=== PATIENT | male | born 1945 | race Caucasian/White ===

== ENCOUNTER 2018-03-05 08:33 | Observation (INO) ==
--- NOTE | 2018-03-05 08:58 | ED ---
HPI General Chief complaint: Fall Stated complaint: Fall Time Seen by Provider: 03/05/18 08:46 Source: patient Mode of arrival: EMS Limitations: no limitations History of Present Illness HPI narrative: 72-year-old male here for evaluation after a fall. The patient reports that he was walking into the [place] [facility] when he tripped and fell onto her right outstretched hand. He struck his head but denies loss of consciousness. States that there is an obvious deformity to his right hand with a large laceration over the palmar aspect. Pain is 2 out of 10, throbbing , constant, worse with movements. He denies paresthesias. Head pain is minimal. He is on 81 mg of aspirin daily. No other antiplatelets or anticoagulants. Denies neck or back pain. He does have some mild pain in his right knee, however he reports that he was able to ambulate after the fall. Last tetanus was 3 days ago. He is right-hand dominant. Related Data Home Medications Medication Instructions Recorded Confirmed Lactobac 41-B.bifid,lactis-FOS 1 tab PO DAILY 03/05/18 03/05/18 [Ultimate Probiotic-10] aspirin [Aspirin Childrens] 81 mg PO DAILY 03/05/18 03/05/18 atorvastatin [Lipitor] 80 mg PO DAILY 03/05/18 03/05/18 glimepiride 4 mg PO QAM 03/05/18 03/05/18 lisinopril-hydrochlorothiazide 1 tab PO DAILY 03/05/18 03/05/18 metformin 1,000 mg PO BID 03/05/18 03/05/18 metoprolol tartrate 25 mg PO BID 03/05/18 03/05/18 multivitamin [Multiple Vitamins] 1 tab PO DAILY 03/05/18 03/05/18 tamsulosin [Flomax] 0.8 mg PO DAILY 03/05/18 03/05/18 Allergies Allergy/AdvReac Type Severity Reaction Status Date / Time No Known Allergies Unknown Uncoded 02/27/17 13:42 Review of Systems ROS: all other systems reviewed are negative [facility] Family History Family History Other Family history of cancer Social History Social History Substance History: No History of Abuse Second Hand Smoke Exposure: No Smoking Status: Former smoker How Often Do You Have a Drink Containing Alcohol: 2 to 3 times a week Recent Travel in [facility] within the Last 8 Weeks: No Recent Out of Country Travel within the Last 8 Weeks: No Immunization History Tetanus Immunization: <5 Years Tetanus Immunization Year if Known: 2018 Exam Narrative Exam Narrative: GENERAL: Well-developed, well-nourished, pleasant, comfortable, no apparent distress. SKIN: Focused skin assessment warm/dry. Large linear/horizontal laceration over the palmar aspect of the patient's right hand just proximal to the MCP joint with obvious deformity to the second and third MCP joints. There is also a laceration in the webspace between the first and second fingers of moderate depth, mild venous oozing, no visible contaminants. Superficial abrasion to right forehead as well as right anterior knee. HEAD: Superficial abrasion to right forehead as well as right anterior knee. Normocephalic. EYES: Pupils equal, round, 3 mm, reactive to light. No scleral icterus. No injection or drainage. ENT: Mucous membranes pink and moist. NECK: Trachea midline. No JVD. No midline cervical spine step-off or tenderness. CARDIOVASCULAR: Regular rate and rhythm. RESPIRATORY: No accessory muscle use. Clear to auscultation. Breath sounds equal bilaterally. GASTROINTESTINAL: Abdomen soft, non-tender, nondistended. MUSCULOSKELETAL: Skin exam as above with obvious deformity to the right hand at the second and third MCP joints with tenderness to this area. Normal sensation and capillary refill in all fingers in the right hand. No tenderness or deformity at the right wrist, elbow, or shoulder joints there is a small/ superficial abrasion to the right anterior knee with mild tenderness, no obvious bony deformity, normal range of motion. NEUROLOGICAL: Awake and alert. No obvious cranial nerve deficits. Motor grossly within normal limits. Normal speech. PSYCHIATRIC: Appropriate mood and affect; insight and judgment normal. Course Initial Documented Vital Signs Temperature 98.1 F 03/05/18 08:42 Pulse Rate 64 03/05/18 08:42 Respiratory Rate 20 03/05/18 08:42 Blood Pressure 182/81 H 03/05/18 08:42 Pulse Oximetry 97 03/05/18 08:42 Last Documented Vital Signs Temperature 98.1 F 03/05/18 08:42 Pulse Rate 64 03/05/18 08:42 Respiratory Rate 20 03/05/18 08:42 Blood Pressure 182/81 H 03/05/18 08:42 Pulse Oximetry 97 03/05/18 08:42 Medical Decision Making MDM Narrative Medical decision making narrative: Right hand x-ray: CONCLUSION: Dislocated second metacarpal phalangeal joint. Case discussed with on-call hand surgeon Dr. Carrizales through the circulating nurse as he is currently in surgery. He would like me to relocate the joint in the emergency department, wash the lacerations out thoroughly, and discharge patient home on oral antibiotics. Procedure note: Reduction of joint dislocation: Right second MCP joint dislocation was reduced by me using gentle traction. Tolerated well. No complications. Postreduction exam shows that the entire right hand is neurovascularly intact, and the patient has full range of flexion and extension in the right hand and index finger. FDS and FDP appear intact. The patient was provided 2 g of IV Ancef. He received a tetanus vaccine 3 days ago. Laceration repairs will be performed my TEE. Post reduction right hand xray: CONCLUSION: Persistent mild [id number]-qp-[id number] subluxation of the second metacarpal phalangeal joint following reduction. The patient's hand lacerations were thoroughly irrigated by my PA Chaparro Zimmerman who noticed a partial flexor tendon injury to the third finger. This information was relayed to Dr. Carrizales or the hand surgeon on-call through the circulating nurse in the OR. The patient will be admitted for observation to the medical service and he will evaluate the patient and likely take him to the OR later today. The patient and the patient's were made aware of these findings and plan. Case discussed with hospitalist Dr. Madsen who will admit the patient to the hospitalist service. Medical Screen Exam Complete: Yes Emergency Medical Condition: Yes Differential Diagnosis Differential Diagnosis: Open right hand fracture/dislocation, intracranial trauma, mechanical trip and fall Lab Data Result diagrams: 03/05/18 09:00 03/05/18 09:00 Lab Results 03/05/18 03/05/18 03/05/18 Range/Units 09:00 09:00 09:00 WBC 6.8 (4.0-11.0) th/mm3 RBC 4.87 (4.50-5.90) mil/mm3 Hgb 13.7 (13.0-17.0) gm/dL Hct 41.4 (39.0-51.0) % MCV 85.0 (80.0-100.0) fL MCH 28.2 (27.0-34.0) pg MCHC 33.1 (32.0-36.0) % RDW 15.5 (11.6-17.2) % Plt Count 176 (150-450) th/mm3 MPV 8.7 (7.0-11.0) fL PT 11.4 (9.8-11.6) sec INR 1.1 Ratio APTT 27.1 (23.4-31.7) sec Sodium 139 (136-145) meq/L Potassium 4.2 (3.5-5.1) meq/L Chloride 104 (98-107) meq/L Carbon Dioxide 27.0 (21.0-32.0) meq/L Anion Gap 8 (5-15) meq/L BUN 24 H (7-18) mg/dL Creatinine 1.06 (0.60-1.30) mg/dL Estimated GFR 68 L (>89) mL/min POC Glucose (68-110) mg/dl Random Glucose 164 H (74-106) mg/dL Calcium 9.1 (8.5-10.1) mg/dL 03/05/18 Range/Units 15:21 WBC (4.0-11.0) th/mm3 RBC (4.50-5.90) mil/mm3 Hgb (13.0-17.0) gm/dL Hct (39.0-51.0) % MCV (80.0-100.0) fL MCH (27.0-34.0) pg MCHC (32.0-36.0) % RDW (11.6-17.2) % Plt Count (150-450) th/mm3 MPV (7.0-11.0) fL PT (9.8-11.6) sec INR Ratio APTT (23.4-31.7) sec Sodium (136-145) meq/L Potassium (3.5-5.1) meq/L Chloride (98-107) meq/L Carbon Dioxide (21.0-32.0) meq/L Anion Gap (5-15) meq/L BUN (7-18) mg/dL Creatinine (0.60-1.30) mg/dL Estimated GFR (>89) mL/min POC Glucose 70 (68-110) mg/dl Random Glucose (74-106) mg/dL Calcium (8.5-10.1) mg/dL Imaging Data Radiologist's impression: Hand X-Ray 03/05/18 00:00 CONCLUSION: Persistent mild fyck-rs-xitf subluxation of the second metacarpal phalangeal joint following reduction. Cervical Spine CT 03/05/18 08:52 CONCLUSION: 1. No fracture or dislocation. 2. Degenerative changes as detailed above. Hand X-Ray 03/05/18 08:52 CONCLUSION: Dislocated second metacarpal phalangeal joint. Head CT 03/05/18 08:52 CONCLUSION: 1. No acute intracranial abnormality. . Knee X-Ray 03/05/18 08:52 CONCLUSION: No evidence of recent bony injury. Wrist X-Ray 03/05/18 10:12 CONCLUSION: Mild residual subluxation remains evident of the second metacarpal phalangeal joint following reduction. Wrist is intact without evidence of fracture or dislocation. Discharge Plan Discharge Disposition Patient Disposition: 30 Still Patient Discharge Condition Condition: Stable Discharge Details Diagnosis: Dislocation of finger, right, open Physicians Team ED Provider: Gonsalo Duran ED Midlevel Provider: Chaparro Zimmerman Primary Care Provider: Nena Thomas Attending Provider: Vivek Madsen Other Providers: Jeff Carrizales Status ED Status: Left Department Discharge Information Discharge Date/Time: 03/05/18 13:24
[2018-03-05 09:11] LABS: Hematocrit 41.4 % (39.0-51.0); Hemoglobin 13.7 gm/dL (13.0-17.0); Mean Corpuscular HGB Conc 33.1 % (32.0-36.0); Mean Corpuscular Hemoglobin 28.2 pg (27.0-34.0); Mean Platelet Volume 8.7 fL (7.0-11.0); Platelet Count 176 th/mm3 (150-450); Red Blood Count 4.87 mil/mm3 (4.50-5.90); Red Cell Distribution Width 15.5 % (11.6-17.2); White Blood Count 6.8 th/mm3 (4.0-11.0)
[2018-03-05 09:19] LABS: Activated Partial Thrombo Time 27.1 sec (23.4-31.7); INR 1.1 Ratio; Prothrombin Time 11.4 sec (9.8-11.6)
[2018-03-05 09:29] LABS: Calcium 9.1 mg/dL (8.5-10.1); Potassium 4.2 meq/L (3.5-5.1)
[2018-03-05] MEDS ORDERED: ceFAZolin 1 GM Premix Inj 1 GM/50 ML FROZ.PIGGY IV.SIG ONE (09:45)
--- NOTE | 2018-03-05 09:48 | XR ---
EXAM DATE: 03/05/2018 9:43 AM EST AGE/SEX: 72 years / Male INDICATIONS: Fell today, pain right hand, second metacarpal and digit CLINICAL DATA: This is the patient's initial encounter. Patient reports that signs and symptoms have been present for 1 day and indicates a pain score of 10/10. MEDICAL/SURGICAL HISTORY: None. None. COMPARISON: No prior exams available for comparison. FINDINGS: The second metacarpophalangeal joint is dislocated. There is ulnar displacement of the proximal phala nx. No significant fractures seen. Overlying soft tissue injury is noted. CONCLUSION: Dislocated second metacarpal phalangeal joint. Electronically signed by: Valentin Ruby MD 03/05/2018 9:47 AM EST
--- NOTE | 2018-03-05 09:50 | XR ---
EXAM DATE: 03/05/2018 9:46 AM EST AGE/SEX: 72 years / Male INDICATIONS: Fell today, right anterior knee pain, small abrasion right anterior knee CLINICAL DATA: This is the patient's initial encounter. Patient reports that signs and symptoms have been present for 1 day and indicates a pain score of 10/10. MEDICAL/SURGICAL HISTORY: None. None. COMPARISON: No prior exams available for comparison. FINDINGS: Bony structures are intact and in normal alignment. Joints are intact without dislocation or signifi cant arthropathy. Osseous density is normal. Soft tissues are unremarkable. No radiopaque foreign bodies seen. CONCLUSION: No evidence of recent bony injury. Electronically signed by: Valentin Ruby MD 03/05/2018 9:48 AM EST
[2018-03-05] MEDS ORDERED: Morphine Inj 4 MG/ML Vial IV.PUSH ONE ×2 (09:53→12:18)
[2018-03-05] MEDS ORDERED: ceFAZolin 2 GM IV; once IV.SIG ONE (10:00)
[2018-03-05] MEDS ORDERED: Lidocaine 1% Inj 50 ML Vial INFILTRATN ONE (10:14)
--- NOTE | 2018-03-05 10:44 | CT ---
EXAM DATE: 03/05/2018 10:35 AM EST AGE/SEX: 72 years / Male INDICATIONS: Trip and fall. Bump on right forehead. CLINICAL DATA: This is the patient's initial encounter. Patient reports that signs and symptoms have been present for 1 day and indicates a pain score of 3/10. MEDICAL/SURGICAL HISTORY: None. None. RADIATION DOSE: 41.24 CTDI (mGy) COMPARISON: No prior exams available for comparison. TECHNIQUE: CT of the head without contrast. Using automated exposure control and adjustment of the mA and/or kV according to patient size, radiation dose was kept as low as reasonably achievable to ob tain optimal diagnostic quality images. DICOM format image data is available electronically for revi ew and comparison. FINDINGS: Cerebrum: The ventricles are normal for age. No evidence of midline shift, mass lesion, hemorrhage or acute infarction. No extraaxial fluid collections are seen. A 1 cm homogeneously calcified area i s seen involving the right parietal lobe near the vertex. Likely dystrophic in nature. Posterior Fossa: The cerebellum and brainstem are intact. The 4th ventricle is midline. The cerebe llopontine angle is unremarkable. Extracranial: The visualized portion of the orbits is intact. Skull: The calvaria is intact. No evidence of skull fracture. CONCLUSION: 1. No acute intracranial abnormality. . Electronically signed by: Celso Olmos MD 03/05/2018 10:42 AM EST
--- NOTE | 2018-03-05 10:50 | CT ---
EXAM DATE: 03/05/2018 10:39 AM EST AGE/SEX: 72 years / Male INDICATIONS: Trip and fall, neck pain. CLINICAL DATA: This is the patient's initial encounter. Patient reports that signs and symptoms have been present for 1 day and indicates a pain score of 4/10. MEDICAL/SURGICAL HISTORY: None. None. RADIATION DOSE: 23.80 CTDI (mGy) COMPARISON: No prior exams available for comparison. TECHNIQUE: Contiguous axial images were obtained using helical multirow detector technique. The vol umetric data was post-processed with multiplanar reconstruction in oblique axial, sagittal, and coron al planes. Using automated exposure control and adjustment of the mA and/or kV according to patient s ize, radiation dose was kept as low as reasonably achievable to obtain optimal diagnostic quality hari ges. DICOM format image data is available electronically for review and comparison. FINDINGS: Vertebrae: Normal vertebral body height. Alignment: Normal. No subluxation. Significant calcified atheromatous plaque throughout the carotid arteries. C2-3: The bony spinal canal is normal in size. No evidence of disc bulge or herniation. The neural foramina are bilaterally patent. C3-4: A mild broad-based disc bulge. No central canal stenosis or abutment of the cord. Bony uncover tebral hypertrophy generates mild encroachment upon the neural foramina bilaterally.. C4-5: The bony spinal canal is normal in size. No evidence of disc bulge or herniation. The neural foramina are bilaterally patent. C5-6: There is disc space narrowing with anterior osteophyte production. A left paracentral disc pro trusion narrows the left lateral recess and central canal. Prominent bony uncovertebral hypertrophy g enerates bilateral neural foraminal narrowing. C6-7: Disc space narrowing with broad-based disc osteophyte complex which causes narrowing of the ce ntral canal and lateral recesses bilaterally. Bony uncovertebral hypertrophy generates bilateral neur al foraminal narrowing.. C7-T1: The bony spinal canal is normal in size. No evidence of disc bulge or herniation. The neura l foramina are bilaterally patent. CONCLUSION: 1. No fracture or dislocation. 2. Degenerative changes as detailed above. Electronically signed by: Celso Olmos MD 03/05/2018 10:49 AM EST
--- NOTE | 2018-03-05 10:54 | XR ---
EXAM DATE: 03/05/2018 10:49 AM EST AGE/SEX: 72 years / Male INDICATIONS: Right extremity pain post fall. CLINICAL DATA: This is the patient's initial encounter. Patient reports that signs and symptoms have been present for 1 day and indicates a pain score of 6/10. MEDICAL/SURGICAL HISTORY: None. None. COMPARISON: C, HAND COMPLETE RIGHT MIN 3V, 03/05/2018. . FINDINGS: The dislocated second metacarpal phalangeal joint has been reduced. Some mild persistent subluxation is noted. The wrist joint is intact without evidence of fracture, dislocation or significant soft tissue swelli ng. CONCLUSION: Mild residual subluxation remains evident of the second metacarpal phalangeal joint following reducti on. Wrist is intact without evidence of fracture or dislocation. Electronically signed by: Valentin Ruby MD 03/05/2018 10:53 AM EST
--- NOTE | 2018-03-05 11:22 | XR ---
EXAM DATE: 03/05/2018 11:18 AM EST AGE/SEX: 72 years / Male INDICATIONS: Post reduction right 2nd digit. CLINICAL DATA: This is the patient's subsequent encounter. Patient reports that signs and symptoms h ave been present for 1 day and indicates a pain score of 5/10. MEDICAL/SURGICAL HISTORY: None. None. COMPARISON: C, WRIST COMPLETE RIGHT MIN 3V, 03/05/2018. . FINDINGS: The dislocated second metacarpal phalangeal joint has almost been reduced. There is continued mild ul chio displacement of the proximal phalanx in relation to the distal metacarpal. There is no evidence of fracture. CONCLUSION: Persistent mild cddm-kc-emmd subluxation of the second metacarpal phalangeal joint following reductio n. Electronically signed by: Valentin Ruby MD 03/05/2018 11:20 AM EST
[2018-03-05] MEDS ORDERED: Dextrose 50% in Water 50 ML Vial IV.PUSH PRN (12:10)
[2018-03-05] MEDS ORDERED: Morphine Sulfate Inj 2 MG/ML Vial IV.PUSH PRN ×2 (12:10→19:13)
--- NOTE | 2018-03-05 12:21 | P.HPIM ---
History of Present Illness Primary Care Physician: Nena Thomas MD, R2 Chief Complaint: pain to the right wrist History of Present Illness: patient is a 72 y/o male with history of hypertension, diabetes mellitus, dyslipidemia and CAD, who presented to ER with pain to the right wrist. he says that this morning while he was trying to get out of the car he tripped and fell on his hands after which he started to have pain to the right wrist.he denies any syncope and other than superficial lacerations on the right knee he denies any other injuries.he doesn't report any chest pain, abdominal pain, sob or dizziness. Review of Systems All other systems reviewed negative except as stated in HPI [facility] - History History Provided By: Patient - Medical History Medical History: Medical History (Last Reviewed 03/05/18 @ 12:16 by Vivek Madsen MD) Diabetes Enlarged prostate Heart disease High cholesterol Hypertension - Surgical History Surgical History: Surgical History (Last Reviewed 03/05/18 @ 12:16 by Vivek Madsen MD) H/O heart bypass surgery H/O shoulder surgery - Family History Family History: Family History (Last Updated 03/05/18 @ 12:16 by Vivek Madsen MD) Other Family history of cancer - Tobacco History Second Hand Smoke Exposure: No Tobacco Use In Past 30 Days: No Smoking Status: Former smoker - Alcohol History How Often Do You Have a Drink Containing Alcohol: Monthly or less - Substance Use History Substance History: No History of Abuse - Travel History Recent Travel in the [place] Within the Last 8 Weeks: No Recent Travel Out of the Country Within the Last 8 Weeks: No - Immunization History Tetanus Immunization: <5 Years Tetanus Immunization Year if Known: 2018 Medications and Allergies Allergies Allergy/AdvReac Type Severity Reaction Status Date / Time No Known Allergies Unknown Uncoded 02/27/17 13:42 Home Medications Medication Instructions Recorded Confirmed Type Lactobac 41-B.bifid,lactis-FOS 1 tab PO DAILY 03/05/18 03/05/18 History [Ultimate Probiotic-10] aspirin [Aspirin Childrens] 81 mg PO DAILY 03/05/18 03/05/18 History atorvastatin [Lipitor] 80 mg PO DAILY 03/05/18 03/05/18 History glimepiride 4 mg PO QAM 03/05/18 03/05/18 History lisinopril-hydrochlorothiazide 1 tab PO DAILY 03/05/18 03/05/18 History metformin 1,000 mg PO BID 03/05/18 03/05/18 History metoprolol tartrate 25 mg PO BID 03/05/18 03/05/18 History multivitamin [Multiple Vitamins] 1 tab PO DAILY 03/05/18 03/05/18 History tamsulosin [Flomax] 0.8 mg PO DAILY 03/05/18 03/05/18 History Exam Vital signs: Vital Signs 03/05/18 08:42 Temperature 98.1 F Pulse Rate 64 Respiratory Rate 20 Blood Pressure 182/81 H Pulse Oximetry 97 Intake & Output 03/04/18 03/05/18 03/05/18 18:59 06:59 18:59 Intake Total 50 / 50 Balance 50 / 50 Weight 128.367 kg Intake: IV 50 / 50 Ancef 2 GM Premix Inj 2 gm In 50 / 50 50 ml @ 100 mls/hr IV.SIG ONCE ONE Rx#:[id number] - Constitutional no acute distress - Routine HEENT Exam Eye: Present: PERRL - Routine Neck Exam Present: supple - Routine Respiratory Exam Present: CTA bilaterally - Routine Cardiovascular Exam Present: RRR - Routine Abdominal Exam Present: soft - Routine Extremities Exam Comments: right wrist/ hand covered with clean dressing/ superficial laceration noted on the right knee. - Routine Neurological Exam Present: alert, oriented X3 Results - Labs CBC & Chem 7: 03/05/18 09:00 03/05/18 09:00 Labs: Short CBC 03/05/18 Range/Units 09:00 WBC 6.8 (4.0-11.0) th/mm3 Hgb 13.7 (13.0-17.0) gm/dL Hct 41.4 (39.0-51.0) % Plt Count 176 (150-450) th/mm3 BMP 03/05/18 09:00 Sodium 139 Potassium 4.2 Chloride 104 Carbon Dioxide 27.0 BUN 24 H Creatinine 1.06 Calcium 9.1 - Imaging Impressions Hand X-Ray 03/05/18 00:00 CONCLUSION: Persistent mild udwq-yn-kpbq subluxation of the second metacarpal phalangeal joint following reduction. Cervical Spine CT 03/05/18 08:52 CONCLUSION: 1. No fracture or dislocation. 2. Degenerative changes as detailed above. Hand X-Ray 03/05/18 08:52 CONCLUSION: Dislocated second metacarpal phalangeal joint. Head CT 03/05/18 08:52 CONCLUSION: 1. No acute intracranial abnormality. . Knee X-Ray 03/05/18 08:52 CONCLUSION: No evidence of recent bony injury. Wrist X-Ray 03/05/18 10:12 CONCLUSION: Mild residual subluxation remains evident of the second metacarpal phalangeal joint following reduction. Wrist is intact without evidence of fracture or dislocation. Caprini VTE Risk Assessment Caprini VTE Risk Assessment: Moderate/High Risk (score >= 2) Caprini Risk Assessment Model: Point Value = 1 Point Value = 2 Point Value = 3 Point Value = 5 Age 41-60 Minor surgery BMI > 25 kg/m2 Swollen legs Varicose veins or History of unexplained or recurrent spontaneous Oral contraceptives or hormone replacement Sepsis (< 1 month) Serious lung disease, including pneumonia (< 1 month) Abnormal pulmonary function Acute myocardial infarction Congestive heart failure (< 1 month) History of inflammatory bowel disease Medical patient at bed rest Age 61-74 Arthroscopic surgery Major open surgery (> 45 min) Laparoscopic surgery (> 45 min) Malignancy Confined to bed (> 72 hours) Immobilizing plaster cast Central venous access Age >= 75 History of VTE Family history of VTE Factor V Leiden Prothrombin [id number] Lupus anticoagulant Anticardiolipin antibodies Elevated serum homocysteine Heparin-induced thrombocytopenia Other congenital or acquired thrombophilia Stroke (< 1 month) Elective arthroplasty Hip, pelvis, or leg fracture Acute spinal cord injury (< 1 month) Prophylaxis Regimen: Total Risk Factor Score Risk Level Prophylaxis Regimen 0-1 Low Early ambulation 2 Moderate Order ONE of the following: *Sequential Compression Device (SCD) *Heparin 5000 units SQ BID 3-4 Higher Order ONE of the following medications: *Heparin 5000 units SQ TID *Enoxaparin/Lovenox 40 mg SQ daily (WT < 150 kg, CrCl > 30 mL/min) *Enoxaparin/Lovenox 30 mg SQ daily (WT < 150 kg, CrCl > 10-29 mL/min) *Enoxaparin/Lovenox 30 mg SQ BID (WT < 150 kg, CrCl > 30 mL/min) AND/OR *Sequential Compression Device (SCD) 5 or more Highest Order ONE of the following medications: *Heparin 5000 units SQ TID (Preferred with Epidurals) *Enoxaparin/Lovenox 40 mg SQ daily (WT < 150 kg, CrCl > 30 mL/min) *Enoxaparin/Lovenox 30 mg SQ daily (WT < 150 kg, CrCl > 10-29 mL/min) *Enoxaparin/Lovenox 30 mg SQ BID (WT < 150 kg, CrCl > 30 mL/min) AND *Sequential Compression Device (SCD) Assessment and Plan - Plan A/P - fall with right 2nd MCP joint dislocation; s/p closed reduction in ER XR of the wrist with residual subluxation keep NPO and consult hand surgery- continue with pain control. -CAD- s/p CABG will resume aspirin after hand surgery evaluation- resume statin -hypertension; resume home meds- Vasotec prn. -diabetes mellitus; start on accu-check with SSI -DVT prophylaxis; pending hand surgery consult. Discussed Condition With: ER physician and the patient. Discharge Planning: home when cleared by hand surgery.
[2018-03-05] MEDS: Sod Chloride 0.9% Inj 1,000 ML IV.CONT SCH (12:49)
[2018-03-05] MEDS ORDERED: Lidocaine 2% Inj 50 ML Vial ONE (14:52)
[2018-03-05] MEDS ORDERED: Bupivacaine/Epinephrine PF Inj 0.5% 30 ML Vial ONE (14:52)
[2018-03-05] MEDS ORDERED: Bupivacaine PF 0.5% Inj 30 ML Vial ONE (14:55)
[2018-03-05] MEDS ORDERED: Chlorhexidine Gluconate 2% 1 Pack (2 Cloths) TOPICAL ONE (16:07)
[2018-03-05] MEDS ORDERED: Phenylephrine/NS 1000 MCG/10ML Syringe IV.PUSH ONE (16:08)
[2018-03-05] MEDS ORDERED: Lidocaine PF 1% Inj 5 ML Syringe OTHER ONE (16:08)
[2018-03-05] MEDS ORDERED: Sodium Chloride 0.9% 2 ML Flush PRN IV.FLUSH (16:12)
[2018-03-05] MEDS ORDERED: Sodium Chlor 0.9% Inj 500 ML IV.SIG SCH (16:15)
[2018-03-05] MEDS ORDERED: Metoprolol Tartrate 25 MG Tablet PO SCH (16:15)
[2018-03-05] MEDS ORDERED: Bupivacaine 0.25% Inj 50 ML MDV Vial ONE (16:18)
--- NOTE | 2018-03-05 16:54 | ECG ---
Date Performed: 03/05/2018 Time Performed: 11:59:16 PTAGE: 72 years EKG: SINUS BRADYCARDIA WITH FIRST DEGREE AV BLOCK OLD INFERIOR MYOCARDIAL INFARCTION ABNORMAL EC G NO PREVIOUS TRACING DOCTOR: Mian Guido Interpretating Date/Time 03/05/2018 16:52:57
[2018-03-05] MEDS ORDERED: ceFAZolin 2 GM Premix Inj 2 GM/50 ML PIGGYBACK IV.SIG ONE (17:58)
[2018-03-05] MEDS ORDERED: fentaNYL Citrate Inj 100 MCG/2 ML Ampul ONE (18:32)
[2018-03-05] MEDS ORDERED: Dextrose 50% in Water Syringe 50 ML ONE (18:33)
--- NOTE | 2018-03-05 19:27 | XR ---
EXAM DATE: 03/05/2018 7:13 PM EST AGE/SEX: 72 years / Male INDICATIONS: Post op right hand CLINICAL DATA: This is the patient's subsequent encounter. Patient reports that signs and symptoms h ave been present for 1 day and indicates a pain score of 5/10. MEDICAL/SURGICAL HISTORY: None. None. COMPARISON: [facility] [place], WRIST COMPLETE RIGHT MIN 3V, 03/05/2018. [facility] [place], HAND LIMITED RIGHT 2V, 018. . FINDINGS: Bandage artifact obscures osseous detail. The bone density is normal. No fractures are seen. CONCLUSION: No obvious fractures. Electronically signed by: Luther Clement MD 03/05/2018 7:25 PM EST
[2018-03-05] MEDS: Metoprolol Tartrate 25 MG Tablet PO SCH (22:38)
[2018-03-05] MEDS: Sodium Chloride 0.9% 2 ML Flush BID IV.FLUSH SCH (22:38)
[2018-03-05] MEDS: Insulin NovoLOG Aspart Correctional Sugar Inj SQ SCH (22:48)
[2018-03-06] MEDS: Sod Chloride 0.9% Inj 1,000 ML IV.CONT SCH ×2 (05:00→12:05)
[2018-03-06] MEDS ORDERED: hydroCHLOROthiazide 25 MG Tablet PO SCH (09:00)
[2018-03-06] MEDS ORDERED: Lisinopril 10 MG Tablet PO SCH (09:00)
[2018-03-06 09:38] VITALS: O2SAT 98
[2018-03-06] MEDS: Insulin NovoLOG Aspart Correctional Sugar Inj SQ SCH ×2 (09:39→12:59)
[2018-03-06] MEDS: Sodium Chloride 0.9% 2 ML Flush BID IV.FLUSH SCH (09:40)
[2018-03-06] MEDS: Metoprolol Tartrate 25 MG Tablet PO SCH (09:40)
--- NOTE | 2018-03-06 09:57 | P.PN ---
Subjective Interval history: Follow-up on patient who underwent right open reduction second metacarpal phalangeal joint dislocation. Patient seen and examined. Patient is has already been cleared for discharge by hand surgery pending post reduction films. Patient states he feels well. He reports that his pain is controlled. He denies any fever or chills. He denies any chest pain or shortness of breath. He denies any nausea, vomiting or abdominal pain. Discussed with nursing staff, no acute issues noted overnight. Physical Exam Vital signs: Vital Signs 03/05/18 18:22 03/05/18 18:30 03/05/18 18:45 Temperature 98.2 F Pulse Rate 73 67 63 Respiratory Rate 16 16 18 Blood Pressure 170/75 H 167/72 H 155/70 H Pulse Oximetry 100 100 100 03/05/18 19:00 03/05/18 19:25 03/05/18 20:00 Temperature 98.2 F 97.8 F Pulse Rate 67 61 69 Respiratory Rate 18 18 Blood Pressure 161/65 H 160/71 H 154/69 H Pulse Oximetry 96 96 94 L 03/06/18 00:00 03/06/18 04:00 03/06/18 09:37 Temperature 97.7 F 98.1 F Pulse Rate 70 60 68 Respiratory Rate 18 18 Blood Pressure 158/69 H 165/70 H 159/68 H Pulse Oximetry 95 95 98 Intake & Output 03/05/18 03/06/18 03/06/18 18:59 06:59 18:59 Intake Total 2112.5 / 2112.5 350 / 350 Output Total 5 / 5 Balance 2107.5 / 2107.5 350 / 350 Weight 128 kg 69.3 kg Intake: IV 112.5 / 112.5 D50W Syringe 50 ML @ 0 mls/hr . 12.5 / 12.5 ROUTE .STK-MED ONE Rx#:[id number] Ancef 2 GM Premix Inj 2 gm In 100 / 100 50 ml @ 100 mls/hr IV.SIG ONCE ONE Rx#:[id number] Oral 350 / 350 Anesthesia Amount 1999 Output: Estimated Blood Loss 5 / 5 Other: # Voids 4 Date of Last Bowel Movement 03/05/18 Weight On Admission 128 kg Narrative: GENERAL: WDWN male patient, INAD. Awake and alert. Appears comfortable. SKIN: Warm and dry. No rash. HEAD: Atraumatic. Normocephalic. EYES: Pupils equal and round. No scleral icterus. No injection or drainage. ENT: No nasal bleeding or discharge. Mucous membranes pink and moist. NECK: Trachea midline. CARDIOVASCULAR: Regular rate and rhythm. RESPIRATORY: No accessory muscle use. Clear to auscultation. Breath sounds equal bilaterally. GASTROINTESTINAL: Abdomen soft, non-tender, nondistended. +BS. MUSCULOSKELETAL: Extremities without clubbing, cyanosis, or edema. RUE in splint , elevated in sling on IV pole. All digits warm and well perfused. + good cap refill. Sensation intact to light touch. Able to wiggle the digits of the right hand. NEUROLOGICAL: Awake and alert. No obvious cranial nerve deficits. Motor grossly within normal limits. Able to move all extremities spontaneously. Normal speech. PSYCHIATRIC: Appropriate mood and affect; insight and judgment normal. R Results - Labs CBC & Chem 7: 03/05/18 09:00 03/05/18 09:00 Laboratory Results - last 24 hr 03/05/18 03/05/18 03/05/18 15:21 18:29 18:50 POC Glucose 70 69 97 03/05/18 03/06/18 22:42 07:54 POC Glucose 261 H 166 H - Imaging Impressions Hand X-Ray 03/05/18 00:00 CONCLUSION: Persistent mild [id number] subluxation of the second metacarpal phalangeal joint following reduction. Hand X-Ray 03/05/18 00:00 CONCLUSION: No obvious fractures. Cervical Spine CT 03/05/18 08:52 CONCLUSION: 1. No fracture or dislocation. 2. Degenerative changes as detailed above. Head CT 03/05/18 08:52 CONCLUSION: 1. No acute intracranial abnormality. . Wrist X-Ray 03/05/18 10:12 CONCLUSION: Mild residual subluxation remains evident of the second metacarpal phalangeal joint following reduction. Wrist is intact without evidence of fracture or dislocation. Assessment and Plan - Plan 72 y/o male with history of hypertension, diabetes mellitus, dyslipidemia and CAD, who presented to ER with pain to the right wrist s/p fall: fall with right 2nd MCP joint dislocation; s/p closed reduction in ER XR of the wrist with residual subluxation -Hand surgery following, appreciate assistance. s/p right open reduction of the second metacarpal phalangeal joint dislocation. Patient cleared for discharge pending postreduction films by hand surgeon. Recommends p.o. Keflex for 7 days. Imaging ordered. -Continue with pain management and bowel regimen -PT/OT eval/recs CAD- s/p CABG Patient has no cardiac complaints -Continue on Lopressor 25 mg twice daily -Resume aspirin and statin therapy daily Hypertension -Continue with Lopressor, hydrochlorothiazide, lisinopril -Vasotec prn -Continue to monitor B. Testicular cord Diabetes mellitus Blood sugars acceptable -Patient's home medications glimepiride and metformin held -Continue on accu-check with SSI BPH -Continue patient on home dose of DVT prophylaxis -bilateral SCD/TAMARA hose Discharge patient to home Condition on discharge: Improved Heart healthy, diabetic diet as tolerated Activity per PT/OT recommendations Rx written: Keflex Follow-up with primary care physician and Dr. Carrizales Discussed Condition With: patient, nursing staff
--- NOTE | 2018-03-06 11:07 | P.CON ---
History of Present Illness Service: Hand surgery Consult date: 03/05/18 Reason for Consult: Right second metacarpal phalangeal joint dislocation Primary Care Provider: Nena Thomas MD, R2 Chief Complaint: Right second metacarpal phalangeal joint dislocation History of Present Illness: 72M with history of hypertension, diabetes mellitus, dyslipidemia and CAD, who presented to ER status post ground-level fall where he injured his right hand and sustained multiple lacerations. He denied loss of consciousness and/or syncope. Patient was injected with local and reduced by the ED physician. He reported normal sensation to the digits before being injected with local for the reduction. Patient reports that the sensation has largely returned to normal following the reduction. Review of Systems All other systems reviewed negative except as stated in HPI Medical History: Medical History (Last Reviewed 03/05/18 @ 12:16 by Vivek Madsen MD) Diabetes Enlarged prostate Heart disease High cholesterol Hypertension Surgical History: Surgical History (Last Reviewed 03/05/18 @ 12:16 by Vivek Madsen MD) H/O heart bypass surgery H/O shoulder surgery Family History: Family History (Last Updated 03/05/18 @ 12:16 by Vivek Madsen MD) Family history of cancer Tobacco History former smoker Medication list reviewed PMFSH - History History Provided By: Patient - Medical History Medical History: Medical History (Last Reviewed 03/05/18 @ 12:16 by Vivek Madsen MD) Diabetes Enlarged prostate Heart disease High cholesterol Hypertension - Surgical History Surgical History: Surgical History (Last Reviewed 03/05/18 @ 12:16 by Vivek Madsen MD) H/O heart bypass surgery H/O shoulder surgery - Family History Family History: Family History (Last Updated 03/05/18 @ 12:16 by Vivek Madsen MD) Other Family history of cancer - Tobacco History Second Hand Smoke Exposure: No Tobacco Use In Past 30 Days: No Smoking Status: Former smoker - Alcohol History How Often Do You Have a Drink Containing Alcohol: 2 to 3 times a week - Substance Use History Substance History: No History of Abuse - Travel History Recent Travel in the [place] Within the Last 8 Weeks: No Recent Travel Out of the Country Within the Last 8 Weeks: No - Immunization History Tetanus Immunization: <5 Years Tetanus Immunization Year if Known: 2018 Medications and Allergies Active Medications: Active Medications Atorvastatin Calcium (Lipitor) 80 mg PO DAILY [facility] Last Admin: 03/06/18 09:39 Dose: 80 mg Dextrose (D50w Vial) 50 ml IV.PUSH UNSCH PRN PRN Reason: PER HYPOGLYCEMIA PROTOCOL Enalaprilat (Vasotec Inj) 1.25 mg IV.PUSH Q8H PRN PRN Reason: SBP > 180 or DBP > 100 Glucagon (Glucagon Inj) 1 mg OTHER PRN PRN PRN Reason: for Hypoglycemia Protocol Hydrochlorothiazide (Hydrodiuril) 12.5 mg PO DAILY [facility] Last Admin: 03/06/18 09:40 Dose: 12.5 mg Sodium Chloride (Ns Inj) 1,000 mls @ 84 mls/hr IV.CONT .[id number] [facility] Last Admin: 03/06/18 05:00 Dose: Not Given Lactated Ringer's (Lr 1000 Ml Inj) 1,000 mls @ 30 mls/hr IV.SIG .Q24H [facility] Stop: 03/06/18 16:14 Insulin Aspart (Novolog Insulin Correctional Sugar Inj) 0 unit SQ ACHS [facility]; Protocol Last Admin: 03/06/18 09:39 Dose: 1 unit Lisinopril (Prinivil) 10 mg PO DAILY [facility] Last Admin: 03/06/18 09:39 Dose: 10 mg Metoprolol Tartrate (Lopressor) 25 mg PO BID [facility] Last Admin: 03/06/18 09:40 Dose: 25 mg Metoprolol Tartrate (Lopressor) 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 PO SOCIAL MEDIA STRATEGIST [facility] Stop: 03/06/18 16:14 Miscellaneous (Pill Splitter) 1 each OTHER UNSCH PRN PRN Reason: SEE LABEL COMMENTS Miscellaneous Information ([facility] Nursing Information) 0 each OTHER UNSCH PRN PRN Reason: SEE LABEL COMMENTS Stop: 03/06/18 18:25 Morphine Sulfate (Morphine Inj) 1 mg IV.PUSH Q6H PRN PRN Reason: BREAKTHROUGH PAIN Oxycodone/Acetaminophen (Percocet 5/325 Mg) 1 tab PO Q4H PRN PRN Reason: PAIN SCALE 1 TO 10 Sodium Chloride (Ns Flush) 2 ml IV.FLUSH BID [facility] Last Admin: 03/06/18 09:40 Dose: 2 ml Sodium Chloride (Ns Flush) 2 ml IV.FLUSH PRN PRN PRN Reason: FLUSH AFTER USING IV ACCESS Tamsulosin HCl (Flomax) 0.8 mg PO DAILY [facility] Last Admin: 03/06/18 09:40 Dose: Not Given Allergies Allergy/AdvReac Type Severity Reaction Status Date / Time No Known Allergies Unknown Uncoded 02/27/17 13:42 Home Medications Medication Instructions Recorded Confirmed Type Lactobac 41-B.bifid,lactis-FOS 1 tab PO DAILY 03/05/18 03/05/18 History [Ultimate Probiotic-10] aspirin [Aspirin Childrens] 81 mg PO DAILY 03/05/18 03/05/18 History atorvastatin [Lipitor] 80 mg PO DAILY 03/05/18 03/05/18 History glimepiride 4 mg PO QAM 03/05/18 03/05/18 History lisinopril-hydrochlorothiazide 1 tab PO DAILY 03/05/18 03/05/18 History metformin 1,000 mg PO BID 03/05/18 03/05/18 History metoprolol tartrate 25 mg PO BID 03/05/18 03/05/18 History multivitamin [Multiple Vitamins] 1 tab PO DAILY 03/05/18 03/05/18 History tamsulosin [Flomax] 0.8 mg PO DAILY 03/05/18 03/05/18 History Physical Exam Vital signs: Vital Signs 03/05/18 18:22 03/05/18 18:30 03/05/18 18:45 Temperature 98.2 F Pulse Rate 73 67 63 Respiratory Rate 16 16 18 Blood Pressure 170/75 H 167/72 H 155/70 H Pulse Oximetry 100 100 100 03/05/18 19:00 03/05/18 19:25 03/05/18 20:00 Temperature 98.2 F 97.8 F Pulse Rate 67 61 69 Respiratory Rate 18 18 Blood Pressure 161/65 H 160/71 H 154/69 H Pulse Oximetry 96 96 94 L 03/06/18 00:00 03/06/18 04:00 03/06/18 09:37 Temperature 97.7 F 98.1 F Pulse Rate 70 60 68 Respiratory Rate 18 18 18 Blood Pressure 158/69 H 165/70 H 159/68 H Pulse Oximetry 95 95 98 Intake & Output 03/05/18 03/06/18 03/06/18 18:59 06:59 18:59 Intake Total 2112.5 / 2112.5 350 / 350 Output Total 5 / 5 Balance 2107.5 / 2107.5 350 / 350 Weight 128 kg 69.3 kg Intake: IV 112.5 / 112.5 D50W Syringe 50 ML @ 0 mls/hr . 12.5 / 12.5 ROUTE .STK-MED ONE Rx#:[id number] Ancef 2 GM Premix Inj 2 gm In 100 / 100 50 ml @ 100 mls/hr IV.SIG ONCE ONE Rx#:[id number] Oral 350 / 350 Anesthesia Amount 1999 Output: Estimated Blood Loss Other: # Voids 4 Date of Last Bowel Movement 03/05/18 Weight On Admission 128 kg Narrative: No apparent anxiety moist mucous membranes PERRLA skin without rash respirations nonlabored moves all 4 extremities to command digits warm well perfused Right palmar hand with 4 cm transverse laceration roughly in the location of the distal palmar crease in addition to a longitudinal 1.5 cm laceration in the distal radial first webspace No exposed vital structures All digits appear warm and well perfused with good cap refill Sensation intact light touch distally Patient with intact flexors/extensors, though exam limited by pain Postreduction x-rays show improvement, though right second MCP joint space asymmetric Results - Labs CBC & Chem 7: 03/05/18 09:00 03/05/18 09:00 Labs: Laboratory Results - last 24 hr 03/05/18 03/05/18 03/05/18 15:21 18:29 18:50 POC Glucose 70 69 97 03/05/18 03/06/18 22:42 07:54 POC Glucose 261 H 166 H - Imaging Impressions Hand X-Ray 03/05/18 00:00 CONCLUSION: Persistent mild [id number] subluxation of the second metacarpal phalangeal joint following reduction. Hand X-Ray 03/05/18 00:00 CONCLUSION: No obvious fractures. Assessment and Plan - Assessment (1) Dislocation of finger, right, open Code(s): S63.259A - Unspecified dislocation of unspecified finger, initial encounter; S61.209A - Unspecified open wound of unspecified finger without damage to nail, initial encounter Status: Acute - Plan 72-year-old male who presents status post right open second metacarpal phalangeal joint dislocation, status post reduction by ED physician Risk benefits alternative treatments discussed Specifically discussed with patient that although the finger appears reduced, the joint space asymmetry raises the strong suspicion that he may have entrapped intervening soft tissue structures such as his volar plate All questions answered and the patient expressed understanding Patient elected to assume the risks of open exploration and reduction of above dislocation Informed consent obtained (1) Dislocation of finger, right, open Qualifiers: Encounter type: initial encounter Qualified Code(s): S63.259A - Unspecified dislocation of unspecified finger, initial encounter; S61.209A - Unspecified open wound of unspecified finger without damage to nail, initial encounter
--- NOTE | 2018-03-06 11:10 | P.PN ---
Subjective Interval history: No acute changes overnight. Pain controlled. Sensation normal per patient. Patient keeping the right upper extremity elevated. Physical Exam Vital signs: Vital Signs 03/05/18 18:22 03/05/18 18:30 03/05/18 18:45 Temperature 98.2 F Pulse Rate 73 67 63 Respiratory Rate 16 16 18 Blood Pressure 170/75 H 167/72 H 155/70 H Pulse Oximetry 100 100 100 03/05/18 19:00 03/05/18 19:25 03/05/18 20:00 Temperature 98.2 F 97.8 F Pulse Rate 67 61 69 Respiratory Rate 18 18 Blood Pressure 161/65 H 160/71 H 154/69 H Pulse Oximetry 96 96 94 L 03/06/18 00:00 03/06/18 04:00 03/06/18 09:37 Temperature 97.7 F 98.1 F Pulse Rate 70 60 68 Respiratory Rate 18 18 18 Blood Pressure 158/69 H 165/70 H 159/68 H Pulse Oximetry 95 95 98 Intake & Output 03/05/18 03/06/18 03/06/18 18:59 06:59 18:59 Intake Total 2112.5 / 2112.5 350 / 350 Output Total 5 / 5 Balance 2107.5 / 2107.5 350 / 350 Weight 128 kg 69.3 kg Intake: IV 112.5 / 112.5 D50W Syringe 50 ML @ 0 mls/hr . 12.5 / 12.5 ROUTE .STK-MED ONE Rx#:[id number] Ancef 2 GM Premix Inj 2 gm In 100 / 100 50 ml @ 100 mls/hr IV.SIG ONCE ONE Rx#:[id number] Oral 350 / 350 Anesthesia Amount 1999 Output: Estimated Blood Loss 5 / 5 Other: # Voids 4 Date of Last Bowel Movement 03/05/18 Weight On Admission 128 kg Narrative: Right upper extremity Short arm dorsal blocking splint in place All digits warm well perfused with good cap refill Sensation intact light touch distally Patient denies significant tenderness though exam limited by splint Results - Labs CBC & Chem 7: 03/05/18 09:00 03/05/18 09:00 Laboratory Results - last 24 hr 03/05/18 03/05/18 03/05/18 15:21 18:29 18:50 POC Glucose 70 69 97 03/05/18 03/06/18 22:42 07:54 POC Glucose 261 H 166 H - Imaging Impressions Hand X-Ray 03/05/18 00:00 CONCLUSION: Persistent mild [id number]-kfow subluxation of the second metacarpal phalangeal joint following reduction. Hand X-Ray 03/05/18 00:00 CONCLUSION: No obvious fractures. Assessment and Plan - Assessment (1) Dislocation of finger, right, open Code(s): S63.259A - Unspecified dislocation of unspecified finger, initial encounter; S61.209A - Unspecified open wound of unspecified finger without damage to nail, initial encounter Status: Acute - Plan 72-year-old male who presents status post right open reduction of second metacarpal phalangeal joint dislocation Patient doing well After x-rays are reviewed patient should discharge on p.o. Keflex for 7 days Post reduction films ordered (1) Dislocation of finger, right, open Qualifiers: Encounter type: initial encounter Qualified Code(s): S63.259A - Unspecified dislocation of unspecified finger, initial encounter; S61.209A - Unspecified open wound of unspecified finger without damage to nail, initial encounter
[2018-03-06 13:57] VITALS: BP 158/69; PULSE 69; RESP 16; TEMP 97.6
--- NOTE | 2018-03-06 15:11 | XR ---
EXAM DATE: 03/06/2018 2:41 PM EST AGE/SEX: 72 years / Male INDICATIONS: Post op right 2nd digit was dislocated CLINICAL DATA: This is the patient's subsequent encounter. Patient reports that signs and symptoms h ave been present for 2 days and indicates a pain score of 0/10. MEDICAL/SURGICAL HISTORY: None. . Right hand surgery COMPARISON: [facility] [place], HAND COMPLETE RIGHT MIN 3V, 03/05/2018. . FINDINGS: Radiographs of the right hand were performed through a splint. There is normal anatomic alignment of the second metacarpal phalangeal joint with no residual subluxation. Significant soft tissue swelling remains evident across the intercarpal region of the hand. CONCLUSION: Satisfactory alignment of the second metacarpal phalangeal joint following surgery. Electronically signed by: Valentin Ruby MD 03/06/2018 3:10 PM EST
== END 2018-03-06 16:21 | disposition home or self-care (01) ==
LOC: NEDA 08:33 → NEPE 08:33 → NEPHCDU 13:24 → NEDA 13:24 → N06 17:24
PROVIDERS: ADMIT Internal Medicine; ATTEND Internal Medicine
DX: W01.0XXA Fall on same level from slipping, tripping and stumbling without subsequent striking against object, initial encounter; Z79.82 Long term (current) use of aspirin; E11.9 Type 2 diabetes mellitus without complications; S63.260A Dislocation of metacarpophalangeal joint of right index finger, initial encounter; S81.011A Laceration without foreign body, right knee, initial encounter; Z87.891 Personal history of nicotine dependence; I10 Essential (primary) hypertension; I25.10 Atherosclerotic heart disease of native coronary artery without angina pectoris; N40.0 Benign prostatic hyperplasia without lower urinary tract symptoms; S00.81XA Abrasion of other part of head, initial encounter; Z95.1 Presence of aortocoronary bypass graft; Z79.899 Other long term (current) drug therapy; E78.5 Hyperlipidemia, unspecified